=== PATIENT | female | born 1955 | race Hispanic/Latino ===

== ENCOUNTER → 2017-08-22 | Outpatient (CLI) | payer BC ==
[~2017-08-22] MED LIST: BYSTOLIC5 MG PO; LISINOPRIL-HCT1 EAC2 PO
--- NOTE | 2017-08-22 09:51 | Diagnostic Imaging Report ---
PROCEDURE:LIVER ULTRASOUND COMPARISON:None. INDICATIONS:Elevated Liver Enzymes FINDINGS: Liver: 14.6 cm. Increased hepatic parenchymal echogenicity. No focal mass. Main portal vein: 0.9 cm. Hepatopedal flow. Gallbladder: Multiple nonmobile echogenic gallstones and gallbladder sludge are present. No gallbladder wall thickening or pericholecystic fluid. Common Bile Duct: 4.0 mm. No echogenic filling defect. Sonographic Garcia's sign: Negative. Right kidney: 11.9 cm. No solid or cystic mass, echogenic calculi, or hydronephrosis. Normal parenchymal echogenicity. Pancreas: The visualized portions of the pancreas are normal. Inferior vena cava: Normal. Aorta: Normal. Ascites: None. CONCLUSION: Cholelithiasis without sonographic evidence of cholecystitis. Hepatic steatosis. Dictated by: Jarrell Man M.D. on 08/22/2017 at 9:52 Electronically approved by: Jarrell Man M.D. on 08/22/2017 at 9:52
== END ==
LOC: US 08:52
PROVIDERS: ATTEND Family Medicine
DX: R74.8 Abnormal levels of other serum enzymes (principal)
CPT/HCPCS: 76705